=== PATIENT | male | born 1965 | race Caucasian/White ===

== ENCOUNTER 2021-06-19 05:32 | Emergency (ER) | payer OTHER ==
[~2021-06-19] VITALS: Ht 177.8 cm; Wt 104.3 kg
[2021-06-19 06:02] VITALS: BP 138/77
[2021-06-19] MEDS ORDERED: CLON1TAB PO (06:27)
[2021-06-19] MEDS ORDERED: IBUP-1957 PO (06:28)
== END 2021-06-19 06:30 | disposition home or self-care (01) ==
LOC: ER 05:36
DX: F32.9 Major depressive disorder, single episode, unspecified (principal); F43.10 Post-traumatic stress disorder, unspecified; F17.200 Nicotine dependence, unspecified, uncomplicated; Z98.890 Other specified postprocedural states; Z76.0 Encounter for issue of repeat prescription; Z59.0 Homelessness; Z79.899 Other long term (current) drug therapy

== ENCOUNTER 2021-06-29 16:59 | Emergency (ER) | payer OTHER ==
[~2021-06-29] VITALS: Ht 177.8 cm; Wt 83.9 kg
[~2021-06-29 16:59] MED LIST: CLON1TAB PO; IBUP-1957 PO
--- NOTE | 2021-06-29 17:11 | NUR ---
THE PATIENT BIBS FOR MEDICATION REFILL FOR KLONOPIN. DENIES PAIN. IN ROOM AIR AND DENIES SOB. RESPIRATION REGULAR AND UNLABORED. WILL CONTINUE TO MONITOR THE PATIENT.
[2021-06-29] MEDS ORDERED: clonazePAM 1 MG TABLET ONE (17:56)
[2021-06-29] MEDS: clonazePAM 1 MG TABLET PO ONE (17:57)
--- NOTE | 2021-06-29 18:01 | NUR ---
Patient discharged to home in stable condition. Written and verbal after care instructions given. Patient verbalizes understanding of instruction.
[2021-06-29 18:02] VITALS: BP 125/76
== END 2021-06-29 18:04 | disposition home or self-care (01) ==
LOC: ER 17:06
DX: Z76.0 Encounter for issue of repeat prescription (principal); Z59.0 Homelessness; F43.10 Post-traumatic stress disorder, unspecified; F30.9 Manic episode, unspecified; F17.200 Nicotine dependence, unspecified, uncomplicated; Z79.899 Other long term (current) drug therapy